=== PATIENT | male | born 2000 | race Two or more races ===

== ENCOUNTER 2021-04-28 17:05 | Emergency (ER) | payer OTHER ==
[~2021-04-28] VITALS: Ht 172.7 cm; Wt 72.6 kg
[2021-04-28] MEDS ORDERED: KETOROLAC TROMETH 30 MG/ML 1ML VIAL IV ONE (18:30)
[2021-04-28] MEDS ORDERED: SODIUM CHLORIDE 0.9% 1,000 ML IV ONE (18:30)
[2021-04-28 19:10] LABS: Albumin 4.5 g/dL (3.4-5.0); Basophils # (auto) 0 10 ^3/uL (0-0.2); Basophils % (auto) 0.1 % (0.0-2.0); Calcium 8.5 mg/dL (8.5-10.1); Eosinophils # (auto) 0 10 ^3/uL (0-0.8); Eosinophils % (auto) 0.1 % (0.0-7.0); Hematocrit 41.6 % (41.0-53.0); Lymphocytes # (auto) 0.7 10 ^3/uL (0.4-5.4); Lymphocytes % (auto) 3.4 % (10.0-50.0); Mean Corpuscular Hemoglobin 28.8 pg (28.0-32.0); Mean Corpuscular Hgb Conc. 33.7 g/dL (32.0-36.0); Mean Corpuscular Volume 85.4 fL (80.0-100.0); Monocytes % (auto) 5.3 % (0.0-12.0); Neutrophils # (auto) 17.7 10 ^3/uL (1.6-8.6); Neutrophils % (auto) 91.1 % (37.0-80.0); Potassium 3.5 mmol/L (3.5-5.1); Red Blood Cells 4.87 10^6/uL (4.5-5.90); Red Cell Distribution Width 12.7 % (11.8-14.3); White Blood Cell 19.4 10^3/uL (4.4-10.8)
[2021-04-28 19:18] LABS: BUN/Creatinine Ratio 16.3; Bilirubin, Total 0.9 mg/dL (0.2-1.0); Total Protein 7.4 g/dL (6.4-8.2)
[2021-04-28 21:33] VITALS: BP 112/71
== END 2021-04-28 21:44 | disposition short-term general hospital (02) ==
LOC: EDBD 17:05 → ER 17:05
DX: M54.59 Other low back pain (principal); R07.81 Pleurodynia; M54.2 Cervicalgia; R51.9 Headache, unspecified; Z20.822 Contact with and (suspected) exposure to COVID-19; W19.XXXA Unspecified fall, initial encounter; Y93.89 Activity, other specified; Y92.89 Other specified places as the place of occurrence of the external cause; Y99.8 Other external cause status
CPT/HCPCS: 36415; 70450; 71045; 72125; 72128; 72131; 72170; 80053; 83615; 84484; 85025; 87426; 96361; 96374; 99285; J1885; J7030